=== PATIENT | female | born 1955 | race African-American/Black ===

== ENCOUNTER 2020-08-20 23:30 | Emergency (ER) | payer OTHER ==
[~2020-08-20] VITALS: Ht 152.4 cm; Wt 73.0 kg
[2020-08-21] MEDS ORDERED: CARVEDILOL 12.5MG TABLET PO ONE
[2020-08-21 01:48] VITALS: BP 155/89
== END 2020-08-21 01:53 | disposition home or self-care (01) ==
LOC: ER 23:30
DX: Z04.1 Encounter for examination and observation following transport accident (principal); I10 Essential (primary) hypertension
CPT/HCPCS: 93005; 99283